=== PATIENT | male | born 1990 | race Caucasian/White ===

== ENCOUNTER 2022-08-15 14:50 | Emergency (ER) | payer MEDICAID ==
[~2022-08-15] VITALS: Ht 172.7 cm; Wt 73.0 kg
[2022-08-15] MEDS ORDERED: ETOMIDATE (2MG/ML) 20ML VIAL IV ONE ×2 (15:45→16:15)
[2022-08-15 16:00] VITALS: BP 126/87
== END 2022-08-15 17:35 | disposition home or self-care (01) ==
LOC: ER 14:50
DX: S43.005A Unspecified dislocation of left shoulder joint, initial encounter (principal); F17.210 Nicotine dependence, cigarettes, uncomplicated; X50.9XXA Other and unspecified overexertion or strenuous movements or postures, initial encounter; Y93.89 Activity, other specified; Y92.89 Other specified places as the place of occurrence of the external cause; Y99.8 Other external cause status
CPT/HCPCS: 23650; 73030

== ENCOUNTER 2022-11-07 11:45 | Emergency (ER) | payer MEDICAID ==
[~2022-11-07] VITALS: Ht 154.9 cm; Wt 65.9 kg
[2022-11-07 13:13] VITALS: BP 124/61
[2022-11-07] MEDS ORDERED: ACET500T58 PO (14:43)
== END 2022-11-07 14:56 | disposition home or self-care (01) ==
LOC: ER 11:45
DX: S43.005A Unspecified dislocation of left shoulder joint, initial encounter (principal); F17.210 Nicotine dependence, cigarettes, uncomplicated; X58.XXXA Exposure to other specified factors, initial encounter; Y93.89 Activity, other specified; Y92.89 Other specified places as the place of occurrence of the external cause; Y99.8 Other external cause status
CPT/HCPCS: 73030